=== PATIENT | female | born 1950 | race Caucasian/White ===

== ENCOUNTER → 2023-05-22 14:12 | Outpatient (REF) | payer BC, SELFPAY | LOC: HO.SL 14:12 | PROVIDERS: PCP Family Medicine; Visit Provider Family Medicine | DX: R06.81 Apnea, not elsewhere classified (principal); R06.83 Snoring | CPT/HCPCS: 95806 ==

== ENCOUNTER → 2023-05-22 19:00 | Outpatient (BNV) | payer BC, SELFPAY | PROVIDERS: PCP Family Medicine; Visit Provider Internal Medicine | DX: R06.83 Snoring (principal) | CPT/HCPCS: 95806 ==